=== PATIENT | male | born 1980 | race Caucasian/White ===

== ENCOUNTER → 2019-08-25 | Outpatient (CLI) | payer OTHER ==
[~2019-08-25] MED LIST: BACTRIM DS TAB1 EACH PO; BENTYL20 MG PO; CIPRO500 MG/5 M; NOHOMEMEDICATIONS; NORCO 5-325 TA1 EACH PO; [UNRECOGNIZED DRUG - CODE]
== END ==
LOC: M.LAB 11:11
DX: Z11.59 Encounter for screening for other viral diseases (principal); Z20.828 Contact with and (suspected) exposure to other viral communicable diseases